=== PATIENT | male | born 1960 ===

== ENCOUNTER 2020-06-08 16:25 | Inpatient (IN) | payer OTHER ==
[~2020-06-08] VITALS: Ht 170.2 cm; Wt 128.1 kg
[2020-06-09] MEDS ORDERED: LACTULOSE SYRUP 10GM/15ML (ENULOSE) 30ML UDC PO PRN (11:30)
[2020-06-09] MEDS ORDERED: diphenhydrAMINE 25 MG TAB (BENADRYL) PO PRN (11:30)
[2020-06-09] MEDS ORDERED: LOPERAMIDE 2 MG (IMODIUM) TABLET PO PRN (11:30)
[2020-06-09] MEDS ORDERED: guaiFENesin/CODEINE (ROBITUSSIN AC) 10ML UDC PO PRN (11:30)
[2020-06-09] MEDS ORDERED: CALCIUM CARBONATE 500 MG (TUMS) TAB.CHEW PO PRN (11:30)
[2020-06-09] MEDS ORDERED: ALPRAZolam 0.25 MG (XANAX) TAB PO PRN (11:30)
[2020-06-09] MEDS ORDERED: ONDANSETRON 4 MG (ZOFRAN) ORAL DISSOLVE TAB PO PRN (11:30)
[2020-06-09] MEDS ORDERED: MELATONIN 3 MG TABLET PO PRN (11:30)
[2020-06-09] MEDS ORDERED: DOCUSATE SODIUM 100 MG (COLACE) CAP PO PRN (11:30)
[2020-06-09] MEDS ORDERED: BISACODYL 10 MG SUPP (DULCOLAX) PR PRN (11:30)
[2020-06-09] MEDS ORDERED: FLEET ENEMA ADULT 1 EA BTL PR PRN (11:30)
[2020-06-09] MEDS ORDERED: HYDROcodone/APAP 7.5 MG/325 MG (LORTAB, LORCET PLUS) TABLET PO PRN (11:45)
[2020-06-09] MEDS ORDERED: METHOCARBAMOL 500 MG (ROBAXIN) TABLET PO PRN (11:45)
[2020-06-09] MEDS: FENOFIBRATE 134 MG (LOFIBRA) CAPSULE PO SCH (18:50)
[2020-06-09] MEDS: meTOprolol TARTRATE 25 MG (LOPRESSOR) TABLET PO SCH (21:00)
[2020-06-09] MEDS: DOCUSATE SODIUM 100 MG (COLACE) CAP PO SCH (21:00)
[2020-06-09] MEDS: SENNA W/DOCUSATE (SENOKOT S) TABLET PO SCH (21:00)
[2020-06-09] MEDS: CELECOXIB 100 MG (CeleBREX) CAP PO SCH (21:00)
[2020-06-09] MEDS: polyethylene glycoL POWDER 17 GM (MIRALAX) PACK PO SCH (21:00)
[2020-06-10] MEDS: MULTIVIT W/MINERALS TAB (THERAGRAN M) PO SCH (07:00)
[2020-06-10] MEDS: metFORMIN 500 MG (GLUCOPHAGE) TAB PO SCH ×3 (07:00→18:21)
[2020-06-10] MEDS: ASPIRIN E.C. 81 MG (ECOTRIN) TAB PO SCH (07:00)
[2020-06-10] MEDS: PIOGLITAZONE 30MG (ACTOS) TAB PO SCH (07:00)
[2020-06-10] MEDS: SENNA W/DOCUSATE (SENOKOT S) TABLET PO SCH ×2 (09:00→20:47)
[2020-06-10] MEDS: CALCIUM CARBONATE 500 MG (TUMS) TAB.CHEW PO SCH (09:00)
[2020-06-10] MEDS: DOCUSATE SODIUM 100 MG (COLACE) CAP PO SCH ×2 (09:00→20:47)
[2020-06-10] MEDS: CELECOXIB 100 MG (CeleBREX) CAP PO SCH ×2 (09:00→20:48)
[2020-06-10] MEDS: polyethylene glycoL POWDER 17 GM (MIRALAX) PACK PO SCH ×2 (09:00→20:48)
[2020-06-10] MEDS ORDERED: lisINopril 20 MG (PRINIVIL) TABLET PO SCH (09:00)
[2020-06-10] MEDS: meTOprolol TARTRATE 25 MG (LOPRESSOR) TABLET PO SCH ×2 (09:00→20:48)
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
[2020-06-10 14:05] VITALS: BP 114/70
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
[2020-06-10 17:01] VITALS: BP 122/63
[2020-06-10] MEDS ORDERED: metFORMIN 500 MG (GLUCOPHAGE) TAB ONE (17:53)
[2020-06-10] MEDS: ENOXAPARIN 40 MG/0.4 ML (LOVENOX) SYR SC SCH (20:47)
[2020-06-10] MEDS: FENOFIBRATE 134 MG (LOFIBRA) CAPSULE PO SCH (20:48)
[2020-06-11 05:03] VITALS: BP 118/62
[2020-06-11 05:53] LABS: BASOPHILS # (AUTO) 0.1 10^3/uL (0.0-0.1); BASOPHILS % (AUTO) 1 % (0-10); EOSINOPHILS # (AUTO) 0.3 10^3/uL (0.0-0.3); EOSINOPHILS % (AUTO) 3 % (0-10); HEMATOCRIT 36 % (40-54); HEMOGLOBIN 11.4 G/DL (13.3-17.7); LYMPHOCYTES # (AUTO) 2.7 X 10^3 (1.0-4.0); LYMPHOCYTES % (AUTO) 27 % (12-44); MEAN CORPUSCULAR HEMOGLOBIN 24 PG (25-34); MEAN CORPUSCULAR HGB CONC 31 G/DL (32-36); MEAN CORPUSCULAR VOLUME 75 FL (80-99); MEAN PLATELET VOLUME 10.5 FL (7.4-10.4); MONOCYTES # (AUTO) 0.6 X 10^3 (0.0-1.0); MONOCYTES % (AUTO) 6 % (0-12); NEUTROPHILS # (AUTO) 6.4 X 10^3 (1.8-7.8); NEUTROPHILS % (AUTO) 64 % (42-75); PLATELET COUNT 441 10^3/uL (130-400); RED CELL DISTRIBUTION WIDTH 15.5 % (10.0-14.5); WHITE BLOOD COUNT 10.1 10^3/uL (4.3-11.0)
[2020-06-11] MEDS: MULTIVIT W/MINERALS TAB (THERAGRAN M) PO SCH (06:00)
[2020-06-11] MEDS: PANTOPRAZOLE 40 MG (PROTONIX) TAB PO SCH (06:00)
[2020-06-11] MEDS: PIOGLITAZONE 30MG (ACTOS) TAB PO SCH (06:00)
[2020-06-11] MEDS: metFORMIN 500 MG (GLUCOPHAGE) TAB PO SCH ×2 (06:00→18:12)
[2020-06-11 06:06] LABS: ALBUMIN 3.7 GM/DL (3.2-4.5)
[2020-06-11 06:07] LABS: CALCIUM 9.4 MG/DL (8.5-10.1)
[2020-06-11 06:09] LABS: TOTAL PROTEIN 7.5 GM/DL (6.4-8.2)
[2020-06-11 06:10] LABS: BILIRUBIN,TOTAL 0.4 MG/DL (0.1-1.0)
[2020-06-11 06:12] LABS: CREATININE SERUM 1.6 MG/DL (0.60-1.30)
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
[2020-06-11 06:40] LABS: ANISOCYTOSIS SLIGHT; ATYPICAL LYMPHOCYTES 1 %; EOSINOPHILS % (MANUAL) 2 %; HYPOCHROMASIA SLIGHT; LYMPHOCYTES % (MANUAL) 28 %; METAMYELOCYTES % 1 %; MONOCYTES % (MANUAL) 7 %; MYELOCYTES % 1 %; NEUTROPHILS % (MANUAL) 60 %; NUCLEATED RED BLOOD CELLS 1
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
--- NOTE | 2020-06-11 08:54 | Physical Therapy Evaluation ---
PT Evaluation-General Medical Diagnosis Admission Date Jun 10, 2020 at 13:45 Medical Diagnosis: cerivcal corpectomy and diskectomies Onset Date: May 26, 2020 Therapy Diagnosis Therapy Diagnosis: impaired mobility, endurance Precautions Precautions/Isolations: Fall Prevention, Standard Precautions Referral Physician: Cheryl Ibrahim DO Reason for Referral: Evaluation/Treatment Medical History Pertinent Medical History: Arthritis, DM, GERD, HTN Additional Medical History anxiety,hyperlipidemia, obesity Reviewed History: Yes Social History Home: Single Level Current Living Status: Spouse Entry Into Home: Stairs With Railing PT Steps Into Home: 5 Prior Prior Level of Function SCALE: Activities may be completed with or without assistive devices. 8-Stznbjvjag-mxgunab completes the activity by him/herself with no assistance from a helper. 5-Set-up or Clean-up Assistance-helper sets up or cleans up; patient completes activity. [place] assists only prior to or following the activity. 4-Supervision or Touching Assistance-helper provides verbal cues and/or touching/steadying and/or contact guard assistance as patient completes activity. Assistance may be provided throughout the activity or intermittently. 3-Partial/Moderate Assistance-helper does LESS THAN HALF the effort. [place] lifts, holds or supports trunk or limbs, but provides less than half the effort. 2-Substantial/Maximal Assistance-helper does MORE THAN HALF the effort. [place] lifts or holds trunk or limbs and provides more than half the effort. 0-Nkzeaosdm-zjxbam does ALL the effort. Patient does none of the effort to complete the activity. Or, the assistance of 2 or more helpers is required for the patient to complete the activity. If activity was not attempted, code reason: 7-Patient Refused. 9-Not Applicable-not attempted and the patient did not perform the activity bef ore the current illness, exacerbation or injury. 10-Not Attempted due to Environmental Limitations-(lack of equipment, weather r estraints, etc.). 88-Not Attempted due to Medical Conditions or Safety Concerns. Bed Mobility: 6 Transfers (B,C,W/C): 6 Gait: 6 Stairs: 6 Indoor Mobility (Ambulation): Independent Stairs: Independent PT Evaluation-Current Subjective Patient in bed pre tx, agrees to PT, states he just has a small headache. Pt/Family Goals to be independent at home Objective Patient Orientation: Person, Place, Situation cervical collar ROM/Strength ROM Lower Extremities WNL Strength Lower Extremities 5/5 gross BLE, except for hip flexion 4/5 Sensory Vision: Functional Hearing: Functional Sensation Right Lower Extremit: Intact Sensation Left Lower Extremity: Intact Transfers Roll Left to Right (QC): 6 Sit to Lying (QC): 6 Lying to Sitting/Side of Bed(Q: 6 Sit to Stand (QC): 5 Chair/Rjd-sl-Etubk Xfer(QC): 5 Toilet Transfer (QC): 5 Car Transfer (QC): 5 Patient performs bed mobility and supine <-> sit with independence, sit <-> stand SBA, transfers and car transfer SBA. Occasional cues for direction. Gait Does the Patient Walk?: Yes Mode of Locomotion: Walk Anticipated Mode of Locomotion: Walk Walk 10 feet (QC): 4 Walk 50 ft with 2 Turns(QC): 4 Walk 150 ft (QC): 4 Walking 10ft/uneven surface-QC: 4 Distance: 150'x2 Gait Assistive Device: None Comments/Gait Description Patient can ambulate 150' without an assistive device with SBA (including 50' with at least 2 turns of 90 degrees and 10' over an uneven surface). Patient ambulates slowly but steady, wide DANNIELLE Wheelchair Training Does the Pt Use a Wheelchair?: No Wheel 50 ft with 2 turns (QC): 9 Wheel 150 ft (QC): 9 Stairs #of Steps: 4 1 Step (curb) (QC): 4 4 Steps (QC): 4 12 Steps (QC): 88 Patient went up and down 4 steps using 2 handrails with SBA. Balance Sitting Static: Normal Sitting Dynamic: Normal Standing Static: Good Standing Dynamic: Good Picking up an Object (QC): 4 Treatment Parallel bars exercises x20 (heel raises, mini-squats), LAQ alternating with 2# ankle weights for 5 min, NuStep level 5 for 15 min. Assessment/Needs Patient has impaired mobility, strength, endurance. Gets a little SOB with activity. Steady ambulation without AD, may make him independent on the floor after seeing him this afternoon. Rehab Potential: Fair PT Short Term Goals Short Term Goals Time Frame: Jun 18, 2020 Roll Left & Right: 6 Sit to lyin Lying to sitting on side of be: 6 Sit to stand: 5 Chair/vhm-ld-pdomx transfer: 5 Walk 10 feet: 5 Walk 50 feet with two turns: 5 Walk 150 feet: 5 PT Rug Renovator Goals Rug Renovator Goals PT Custodial Goals Time Frame: Jul 02, 2020 Roll Left & Right (QC): 6 Sit to Lying (QC): 6 Lying-Sitting on Side/Bed(QC): 6 Sit to Stand (QC): 6 Chair/Meg-wp-Altca Xfer(QC): 6 Toilet Transfer (QC): 6 Car Transfer (QC): 6 Does the Patient Walk: Yes Walk 10 feet (QC): 6 Walk 50ft with 2 Turns (QC): 6 Walk 150 ft (QC): 6 Walking 10ft on Uneven Surface: 6 1 Step (curb) (QC): 6 4 Steps (QC): 6 12 Steps (QC): 6 Picking up an Object (QC): 6 Wheel 50 feet with 2 turns (QC: 9 Wheel 150 feet: 9 PT Plan Problem List Problem List: Activity Tolerance, Functional Strength, Safety, Balance, Gait, Transfer Treatment/Plan Treatment Plan: Continue Plan of Care Treatment Plan: Education, Functional Activity Azeem, Functional Strength, Group Therapy, Gait, Safety, Therapeutic Exercise, Transfers Treatment Duration: Jul 02, 2020 Frequency: At least 5 of 7 days/Wk (IRF) Estimated Hrs Per Day: 1.5 hours per day Patient and/or Family Agrees t: Yes Safety Risks/Education Patient Education: Gait Training, Transfer Techniques, Steps, Reviewed Precautions, Correct Positioning, Safety Issues Teaching Recipient: Patient Teaching Methods: Demonstration, Discussion Response to Teaching: Reinforcement Needed Discharge Recommendations Plan Patient will perform bed mobility and transfer training, balance and endurance training, functional strengthening, stair training, gait training, and education, to improve functional mobility and independence at home. Therapy Discharge Recommendati: Home & Family Time/GCodes Time In: 0800 Time Out: 0900 Total Billed Treatment Time: 60 Total Billed Treatment 1 visit EVL 30' EX 30' EVERARDO CHOI PT Jun 11, 2020 08:54
[2020-06-11] MEDS: polyethylene glycoL POWDER 17 GM (MIRALAX) PACK PO SCH ×2 (09:00→20:23)
[2020-06-11 09:30] VITALS: BP 128/72
[2020-06-11] MEDS: ASPIRIN E.C. 81 MG (ECOTRIN) TAB PO SCH (10:17)
[2020-06-11] MEDS: CALCIUM CARBONATE 500 MG (TUMS) TAB.CHEW PO SCH (10:18)
[2020-06-11] MEDS: ENOXAPARIN 40 MG/0.4 ML (LOVENOX) SYR SC SCH ×2 (10:18→21:09)
[2020-06-11] MEDS: meTOprolol TARTRATE 25 MG (LOPRESSOR) TABLET PO SCH ×2 (10:19→21:09)
[2020-06-11] MEDS: SENNA W/DOCUSATE (SENOKOT S) TABLET PO SCH ×2 (10:19→20:23)
[2020-06-11] MEDS: CELECOXIB 100 MG (CeleBREX) CAP PO SCH ×2 (10:19→21:08)
[2020-06-11] MEDS: DOCUSATE SODIUM 100 MG (COLACE) CAP PO SCH ×2 (10:19→21:09)
[2020-06-11] MEDS ORDERED: SIMV20TA26 PO (11:29)
[2020-06-11] MEDS ORDERED: LISI1TAB25 PO (11:29)
[2020-06-11] MEDS ORDERED: OMEP20CA18 PO (11:29)
[2020-06-11] MEDS ORDERED: CALC200T33 PO (11:29)
[2020-06-11] MEDS ORDERED: CELE-63 PO (11:29)
[2020-06-11] MEDS ORDERED: INSN1U SQ (11:29)
[2020-06-11] MEDS ORDERED: ASPI-983 PO (11:29)
[2020-06-11] MEDS ORDERED: METF-399 PO (11:29)
[2020-06-11] MEDS ORDERED: INSU100V31 IJ (11:29)
[2020-06-11] MEDS ORDERED: LORA-405 PO (11:29)
[2020-06-11] MEDS ORDERED: CITA40TA19 PO (11:29)
[2020-06-11] MEDS ORDERED: METO-333 PO (11:29)
[2020-06-11] MEDS ORDERED: CHOL10007 PO (11:30)
[2020-06-11] MEDS ORDERED: KRIL1CAP18 PO (11:30)
[2020-06-11] MEDS ORDERED: NFBIOT1000 PO (11:30)
--- NOTE | 2020-06-11 11:39 | NUR ---
MEDICATIONS HAD BEEN ENTERED AND CONTINUED OVER THE WEEKEND- THEREFORE I SPOKE WITH THE PATIENTS (LEO), SPOKE WITH THE PCP'S OFFICE AND NIK TO COMPLETE THE MED REC THE FOLLOWING ARE FILL DATES: 11-25-2019 LISINOPRIL HCTZ 20/12.5MG #180/90DS- I DID DOCUMENT THE PAST DUE FILL ON THE MED REC 01-28-2020 CELEXA 40MG #90/90DS 01-28-2020 SIMVASTATIN 20MG #90/90DS 03-02-2020 METFORMIN 1000MG #180/90DS 03-07-2020 LORAZEPAM 1MG #20/PRN 04-09-2020 METOPROLOL TART 25MG #180/90DS 05-14-2020 OMEPRAZOLE 20MG #30/30DS 05-17-2020 NOVOLIN N #3 05-23-2020 NOVOLIN R #1 THE HOME MED LIST FROM [facility] HAD MEDICATIONS TO CONTINUE THAT THE PATIENT HASNT TAKEN IN OVER A YEAR: ACTOS 45MG AND TRICOR 145MG - FOR THIS REASON I DID NOT LIST THEM ON THE MED REC [facility] ALSO HAD LISINOPRIL/HCTZ 20/25MG LISTED HOWEVER THE PT HAD BEEN TAKING THE 20/12.5MG DOSE OTC MEDS: ASPIRIN 81 TUMS BIOTIN KRILL OIL VIT D3
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
--- NOTE | 2020-06-11 13:21 | NUR ---
Dmitry, PT, states that pt can be up ad anupama now.
--- NOTE | 2020-06-11 13:29 | Physical Therapy Daily Note ---
PT Daily Note-Current Subjective Patient in room pre tx, agrees to PT, has no complaints of pain. Appearance Patient in room post tx, discussed with nursing, patient will now be independent on the floor Mental Status Patient Orientation: Person, Unable to Assess cervical collar Transfers SCALE: Activities may be completed with or without assistive devices. 7-Cvmfwgrrjf-vbbtcen completes the activity by him/herself with no assistance from a helper. 5-Set-up or Clean-up Assistance-helper sets up or cleans up; patient completes activity. [place] assists only prior to or following the activity. 4-Supervision or Touching Assistance-helper provides verbal cues and/or touching/steadying and/or contact guard assistance as patient completes activity. Assistance may be provided throughout the activity or intermittently. 3-Partial/Moderate Assistance-helper does LESS THAN HALF the effort. [place] lifts, holds or supports trunk or limbs, but provides less than half the effort. 2-Substantial/Maximal Assistance-helper does MORE THAN HALF the effort. [place] lifts or holds trunk or limbs and provides more than half the effort. 8-Etgpgikch-ecbmjb does ALL the effort. Patient does none of the effort to complete the activity. Or, the assistance of 2 or more helpers is required for the patient to complete the activity. If activity was not attempted, code reason: 7-Patient Refused. 9-Not Applicable-not attempted and the patient did not perform the activity before the current illness, exacerbation or injury. 10-Not Attempted due to Environmental Limitations-(lack of equipment, weather restraints, etc.). 88-Not Attempted due to Medical Conditions or Safety Concerns. Sit to Stand (QC): 6 Chair/Bna-wm-Znczk Xfer(QC): 6 Before coming out of room patient had to use the restroom and he did so without assist, independently. Gait Training Distance: 500' Walk 10 feet (QC): 6 Walk 50 ft with 2 Turns(QC): 6 Walk 150 ft (QC): 6 Gait Assistive Device: None slow but steady ambulation, wide DANNIELLE Stair Training Stair Training: Handrails/: 2 handrails #of Steps: 12 1 Step (curb) (QC): 4 4 Steps (QC): 4 12 Steps (QC): 4 Stairs: Pattern: Reciprocal SBA Treatments toileting, ambulation, stair training Assessment Current Status: Fair Progress Patient independent with ambulation PT Short Term Goals Short Term Goals Time Frame: Jun 18, 2020 Roll Left & Right: 6 Sit to lyin Lying to sitting on side of be: 6 Sit to stand: 5 Chair/iuu-po-snduu transfer: 5 Walk 10 feet: 5 Walk 50 feet with two turns: 5 Walk 150 feet: 5 PT Shelter Goals Shelter Goals PT Healthcare Translator Goals Time Frame: Jul 02, 2020 Roll Left & Right (QC): 6 Sit to Lying (QC): 6 Lying-Sitting on Side/Bed(QC): 6 Sit to Stand (QC): 6 Chair/Ale-ga-Zwpoh Xfer(QC): 6 Toilet Transfer (QC): 6 Car Transfer (QC): 6 Does the Patient Walk: Yes Walk 10 feet (QC): 6 Walk 50ft with 2 Turns (QC): 6 Walk 150 ft (QC): 6 Walking 10ft on Uneven Surface: 6 1 Step (curb) (QC): 6 4 Steps (QC): 6 12 Steps (QC): 6 Picking up an Object (QC): 6 Wheel 50 feet with 2 turns (QC: 9 Wheel 150 feet: 9 PT Plan Problem List Problem List: Activity Tolerance, Functional Strength, Safety, Balance, Gait, Transfer Treatment/Plan Treatment Plan: Continue Plan of Care Treatment Plan: Education, Functional Activity Azeem, Functional Strength, Group Therapy, Gait, Safety, Therapeutic Exercise, Transfers Treatment Duration: Jul 02, 2020 Frequency: At least 5 of 7 days/Wk (IRF) Estimated Hrs Per Day: 1.5 hours per day Patient and/or Family Agrees t: Yes Safety Risks/Education Patient Education: Gait Training, Transfer Techniques, Steps, Correct Positioning, Safety Issues Teaching Recipient: Patient Teaching Methods: Demonstration, Discussion Response to Teaching: Reinforcement Needed Time/GCodes Time In: 1300 Time Out: 1330 Total Billed Treatment Time: 30 Total Billed Treatment 1 visit FA 10' GT 20' EVERARDO CHOI PT Jun 11, 2020 13:29
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
[2020-06-11] MEDS ORDERED: inSUlin (REGULAR) HUMAN 1 UNIT/0.01 ML (CHARGE PER UNIT) SC SCH (18:00)
[2020-06-11] MEDS: inSUlin (REGULAR) HUMAN 1 UNIT/0.01 ML (CHARGE PER UNIT) SC SCH (18:38)
[2020-06-11] MEDS: inSUlin NPH (NovoLIN N) 1 UNIT/0.01 ML (CHARGE PER UNIT) SQ SCH (18:39)
[2020-06-11 18:59] VITALS: BP 115/57
[2020-06-11] MEDS ORDERED: inSUlin (REGULAR) HUMAN 1 UNIT/0.01 ML (CHARGE PER UNIT) IJ SCH (21:00)
[2020-06-11] MEDS: FENOFIBRATE 134 MG (LOFIBRA) CAPSULE PO SCH (21:08)
[2020-06-12 06:00] VITALS: BP 113/66
[2020-06-12] MEDS: PANTOPRAZOLE 40 MG (PROTONIX) TAB PO SCH (06:31)
[2020-06-12] MEDS: PIOGLITAZONE 30MG (ACTOS) TAB PO SCH (06:31)
[2020-06-12] MEDS: metFORMIN 500 MG (GLUCOPHAGE) TAB PO SCH ×2 (06:31→17:50)
[2020-06-12] MEDS: MULTIVIT W/MINERALS TAB (THERAGRAN M) PO SCH (06:31)
[2020-06-12] MEDS: inSUlin (REGULAR) HUMAN 1 UNIT/0.01 ML (CHARGE PER UNIT) SC SCH ×2 (08:12→18:03)
[2020-06-12] MEDS: inSUlin NPH (NovoLIN N) 1 UNIT/0.01 ML (CHARGE PER UNIT) SQ SCH ×2 (08:13→18:03)
[2020-06-12] MEDS: ENOXAPARIN 40 MG/0.4 ML (LOVENOX) SYR SC SCH ×2 (08:14→20:53)
[2020-06-12] MEDS: CELECOXIB 100 MG (CeleBREX) CAP PO SCH ×2 (08:14→20:52)
[2020-06-12] MEDS: ASPIRIN E.C. 81 MG (ECOTRIN) TAB PO SCH (08:14)
[2020-06-12] MEDS: CALCIUM CARBONATE 500 MG (TUMS) TAB.CHEW PO SCH (08:14)
[2020-06-12] MEDS: DOCUSATE SODIUM 100 MG (COLACE) CAP PO SCH ×2 (08:14→20:59)
[2020-06-12] MEDS: polyethylene glycoL POWDER 17 GM (MIRALAX) PACK PO SCH ×2 (08:15→20:59)
[2020-06-12] MEDS: SENNA W/DOCUSATE (SENOKOT S) TABLET PO SCH ×2 (08:15→21:00)
[2020-06-12] MEDS: meTOprolol TARTRATE 25 MG (LOPRESSOR) TABLET PO SCH ×2 (08:23→20:53)
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
--- NOTE | 2020-06-12 11:44 | Physical Therapy Daily Note ---
PT Daily Note-Current Subjective Patient in bed pre tx, agrees to PT, has no complaints of pain. Appearance Patient in room post tx, has been independent with ambulation with no known difficulties. Mental Status Patient Orientation: Person, Place, Situation cervical collar Transfers SCALE: Activities may be completed with or without assistive devices. 2-Rwebdeerzk-hmqyblr completes the activity by him/herself with no assistance from a helper. 5-Set-up or Clean-up Assistance-helper sets up or cleans up; patient completes activity. [place] assists only prior to or following the activity. 4-Supervision or Touching Assistance-helper provides verbal cues and/or touching/steadying and/or contact guard assistance as patient completes activity. Assistance may be provided throughout the activity or intermittently. 3-Partial/Moderate Assistance-helper does LESS THAN HALF the effort. [place] lifts, holds or supports trunk or limbs, but provides less than half the effort. 2-Substantial/Maximal Assistance-helper does MORE THAN HALF the effort. [place] lifts or holds trunk or limbs and provides more than half the effort. 7-Swpdfsvfa-hyrble does ALL the effort. Patient does none of the effort to complete the activity. Or, the assistance of 2 or more helpers is required for the patient to complete the activity. If activity was not attempted, code reason: 7-Patient Refused. 9-Not Applicable-not attempted and the patient did not perform the activity before the current illness, exacerbation or injury. 10-Not Attempted due to Environmental Limitations-(lack of equipment, weather restraints, etc.). 88-Not Attempted due to Medical Conditions or Safety Concerns. Roll Left & Right (QC): 6 Sit to Lying (QC): 6 Lying to Sitting/Side of Bed(Q: 6 Sit to Stand (QC): 6 Chair/Rcv-ou-Zdlqs Xfer(QC): 6 Toilet Transfer (QC): 6 Car Transfer (QC): 6 independent with transfers and bed mobility Gait Training Distance: 600' Walk 10 feet (QC): 6 Walk 50 ft with 2 Turns(QC): 6 Walk 150 ft (QC): 6 Walking 10ft/uneven surface-QC: 6 Gait Assistive Device: None Patient can ambulate 600' without an assistive device with independence (including 50' with at least 2 turns of 90 degrees and 10' over an uneven surface). Patient ambulates slow but steady, wide DANNIELLE Wheelchair Training Does the Pt Use a Wheelchair?: No Wheel 50 ft with 2 turns (QC): 9 Wheel 150 ft (QC): 9 Stair Training Stair Training: Handrails/: 2 handrails #of Steps: 12 1 Step (curb) (QC): 6 4 Steps (QC): 6 12 Steps (QC): 6 Stairs: Pattern: Reciprocal Balance Picking up an Object (QC): 6 Exercises LAQ alternating for 5 min with 2# ankle weights NuStep Minutes: 20 NuStep Workload: 5 Treatments bed mobility and transfers, ambulation, stair training, functional strengthening Assessment Current Status: Fair Progress independent with mobility, needs occasional rest break PT Short Term Goals Short Term Goals Time Frame: Jun 18, 2020 Roll Left & Right: 6 Sit to lyin Lying to sitting on side of be: 6 Sit to stand: 5 Chair/dcm-ob-fafdr transfer: 5 Walk 10 feet: 5 Walk 50 feet with two turns: 5 Walk 150 feet: 5 PT Residential Goals Tube [place]inder Hand Goals PT Residential Goals Time Frame: Jul 02, 2020 Roll Left & Right (QC): 6 Sit to Lying (QC): 6 Lying-Sitting on Side/Bed(QC): 6 Sit to Stand (QC): 6 Chair/Tln-rk-Sztjf Xfer(QC): 6 Toilet Transfer (QC): 6 Car Transfer (QC): 6 Does the Patient Walk: Yes Walk 10 feet (QC): 6 Walk 50ft with 2 Turns (QC): 6 Walk 150 ft (QC): 6 Walking 10ft on Uneven Surface: 6 1 Step (curb) (QC): 6 4 Steps (QC): 6 12 Steps (QC): 6 Picking up an Object (QC): 6 Wheel 50 feet with 2 turns (QC: 9 Wheel 150 feet: 9 PT Plan Problem List Problem List: Activity Tolerance, Functional Strength, Safety, Balance, Gait, Transfer Treatment/Plan Treatment Plan: Continue Plan of Care Treatment Plan: Education, Functional Activity Azeem, Functional Strength, Group Therapy, Gait, Safety, Therapeutic Exercise, Transfers Treatment Duration: Jul 02, 2020 Frequency: At least 5 of 7 days/Wk (IRF) Estimated Hrs Per Day: 1.5 hours per day Patient and/or Family Agrees t: Yes Safety Risks/Education Patient Education: Gait Training, Transfer Techniques, Steps, Reviewed Precautions, Correct Positioning, Safety Issues Teaching Recipient: Patient Teaching Methods: Demonstration, Discussion Response to Teaching: Reinforcement Needed Time/GCodes Time In: 1000 Time Out: 1100 Total Billed Treatment Time: 60 Total Billed Treatment 1 visit EX 25' FA 35' EVERARDO CHOI PT Jun 12, 2020 11:44
--- NOTE | 2020-06-12 11:49 | Occupational Ther Daily Note ---
OT Current Status-Daily Note Subjective Pt in bed asleep when OT entered room. Pt agreed to therapy after awaking and reported that he is feeling no pain. Mental Status/Objective Patient Orientation: Person, Place, Time, Situation ADL-Treatment Therapy Code Descriptions/Definitions Functional [place] Measure: 0=Not Assessed/NA 4=Minimal Assistance 1=Total Assistance 5=Supervision or Setup 2=Maximal Assistance 6=Modified [place] 3=Moderate Assistance 7=Complete IndependenceSCALE: Activities may be completed with or without assistive devices. 2-Qpvjpxoxaj-bmfirfl completes the activity by him/herself with no assistance from a helper. 5-Set-up or Clean-up Assistance-helper sets up or cleans up; patient completes activity. [place] assists only prior to or following the activity. 4-Supervision or Touching Assistance-helper provides verbal cues and/or touching/steadying and/or contact guard assistance as patient completes activity. Assistance may be provided throughout the activity or intermittently. 3-Partial/Moderate Assistance-helper does LESS THAN HALF the effort. [place] lifts, holds or supports trunk or limbs, but provides less than half the effort. 2-Substantial/Maximal Assistance-helper does MORE THAN HALF the effort. [place] lifts or holds trunk or limbs and provides more than half the effort. 1-Bciyprdmz-zxuwyr does ALL the effort. Patient does none of the effort to complete the activity. Or, the assistance of 2 or more helpers is required for the patient to complete the activity. If activity was not attempted, code reason: 7-Patient Refused. 9-Not Applicable-not attempted and the patient did not perform the activity before the current illness, exacerbation or injury. 10-Not Attempted due to Environmental Limitations-(lack of equipment, weather restraints, etc.). 88-Not Attempted due to Medical Conditions or Safety Concerns. Eating (QC): 6 (Per pt report) Oral Hygiene (QC): 6 Shower/Bathe Self (QC): 5 (Set up) Upper Body Dressing (QC): 3 (Mod A with donning neck brace) Lower Body Dressing (QC): 6 On/Off Footwear: 6 Toileting Hygiene (QC): 6 Toilet Transfer (QC): 6 Pt. excited to take a shower when provided with an additional cervical collar that could get wet. Pt. ambulated to bathroom, toileted, and completed toilet hygiene independently. Pt. doffed/donned neck brace with mod A due to decreased fine motor and cues for completing task independently. He doffed his shirt, pants, and slipper socks independently. Pt. required set up/clean up assistance for bathing while seated on shower bench. After the shower, pt. donned hospital gown and slipper socks independently. Pt. ambulated to bathroom sink to brush teeth and comb hair independently. Pt. then made his bed in room by taking off old sheets and putting on fresh ones. Pt. collected dirty clothing, ambulated to laundry room, and started laundry with SBA for laundry task only. Pt. walked to therapy gym independently without walker. Once in gym, pt completed 15 minute arm bike activity at minimal resistance to increase BUE ROM and functional activity tolerance. Pt. required one rest break. Pt. tolerated 12 minutes of fine motor activity of placing pegs into board working on in hand manipulation, pincer grasp, and finger strength. Pt. then walked back to room. Once in his room, pt stood in front of bathroom mirror to practice unfastening and refastening velcro straps on cervical collar independently 5 times. Pt. returned to bed with call light and phone within reach when OT left room. All needs met. Education OT Patient Education: Correct positioning, Disease process, Energy conservation, Instructions don/doff splint/brace, Modified ADL techniques, Progress toward Goal/Update tx plan, Purpose of tx/functional activities, Reviewed precautions, Rehab process, Transfer techniques Teaching Recipient: Patient Teaching Methods: Demonstration, Discussion Response to Teaching: Verbalize Understanding, Return Demonstration OT Department Administrator Goals Department Administrator Goals Time Frame: Jun 18, 2020 Eating (QC): 6 Oral Hygiene (QC): 6 Toileting Hygiene (QC): 6 Shower/Bathe Self (QC): 6 Upper Body Dressing (QC): 6 Lower Body Dressing (QC): 6 On/Off Footwear (QC): 6 Additional Goals: 1-Demonstrate ADL Tasks, 2-Verbalize Understanding, 3- ImproveStrength/Azeem 1=Demonstrate adherence to instructed precautions during ADL tasks. 2=Patient will verbalize/demonstrate understanding of assistive devices/modifications for ADL. 3=Patient will improve strength/tolerance for activity to enable patient to perform ADL's. OT Education/Plan Problem List/Assessment Assessment: Decreased Activ Tolerance, Restricted Funct UE ROM Discharge Recommendations Plan/Recommendations: Continue POC Therapy Discharge Recommendati: Home & Family Treatment Plan/Plan of Care Treatment,Training & Education: Yes Patient would benefit from OT for education, treatment and training to promote independence in ADL's, mobility, safety and/or upper extremity function for ADL's. Plan of Care: ADL Retraining, Functional Mobility, UE Funct Exercise/Act Treatment Duration: Jun 18, 2020 Frequency: At least 5 of 7 days/Wk (IRF) Estimated Hrs Per Day: 1.5 hours per day Agreement: Yes Rehab Potential: Good Time/GCodes Start Time: 08:30 Stop Time: 10:00 Total Time Billed (hr/min): 90 Billed Treatment Time 1, ADL 4 (60 minutes), EX (15 minutes), FA (15 minutes) DAVID MANRIQUE OT Jun 12, 2020 11:49
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
--- NOTE | 2020-06-12 13:29 | Physical Therapy Daily Note ---
PT Daily Note-Current Subjective Patient in bed pre tx, agrees to PT, no complaints of pain. Appearance Patient in room post tx, he is independent with mobility Mental Status Patient Orientation: Person, Place, Situation cervical collar Transfers SCALE: Activities may be completed with or without assistive devices. 4-Weecsagshj-pnzvndz completes the activity by him/herself with no assistance from a helper. 5-Set-up or Clean-up Assistance-helper sets up or cleans up; patient completes activity. [place] assists only prior to or following the activity. 4-Supervision or Touching Assistance-helper provides verbal cues and/or touching/steadying and/or contact guard assistance as patient completes activity. Assistance may be provided throughout the activity or intermittently. 3-Partial/Moderate Assistance-helper does LESS THAN HALF the effort. [place] lifts, holds or supports trunk or limbs, but provides less than half the effort. 2-Substantial/Maximal Assistance-helper does MORE THAN HALF the effort. [place] l ifts or holds trunk or limbs and provides more than half the effort. 3-Xvdfgqnmf-acevkh does ALL the effort. Patient does none of the effort to complete the activity. Or, the assistance of 2 or more helpers is required for the patient to complete the activity. If activity was not attempted, code reason: 7-Patient Refused. 9-Not Applicable-not attempted and the patient did not perform the activity before the current illness, exacerbation or injury. 10-Not Attempted due to Environmental Limitations-(lack of equipment, weather restraints, etc.). 88-Not Attempted due to Medical Conditions or Safety Concerns. Roll Left & Right (QC): 6 Lying to Sitting/Side of Bed(Q: 6 Sit to Stand (QC): 6 Chair/Yqk-tm-Ejphv Xfer(QC): 6 Gait Training Distance: 600' Walk 10 feet (QC): 6 Walk 50 ft with 2 Turns(QC): 6 Walk 150 ft (QC): 6 Gait Assistive Device: None Exercises NuStep Minutes: 15 NuStep Workload: 5 Treatments transfers, ,ambulation, functional strengthening Assessment Current Status: Fair Progress independent with mobility PT Short Term Goals Short Term Goals Time Frame: Jun 18, 2020 Roll Left & Right: 6 Sit to lyin Lying to sitting on side of be: 6 Sit to stand: 5 Chair/pzh-ff-gdxar transfer: 5 Walk 10 feet: 5 Walk 50 feet with two turns: 5 Walk 150 feet: 5 PT [place] Goals [facility] Goals PT [place] Goals Time Frame: Jul 02, 2020 Roll Left & Right (QC): 6 Sit to Lying (QC): 6 Lying-Sitting on Side/Bed(QC): 6 Sit to Stand (QC): 6 Chair/Hwp-sb-Djujp Xfer(QC): 6 Toilet Transfer (QC): 6 Car Transfer (QC): 6 Does the Patient Walk: Yes Walk 10 feet (QC): 6 Walk 50ft with 2 Turns (QC): 6 Walk 150 ft (QC): 6 Walking 10ft on Uneven Surface: 6 1 Step (curb) (QC): 6 4 Steps (QC): 6 12 Steps (QC): 6 Picking up an Object (QC): 6 Wheel 50 feet with 2 turns (QC: 9 Wheel 150 feet: 9 PT Plan Problem List Problem List: Activity Tolerance, Functional Strength, Safety, Balance, Gait, Transfer Treatment/Plan Treatment Plan: Continue Plan of Care Treatment Plan: Education, Functional Activity Azeem, Functional Strength, Group Therapy, Gait, Safety, Therapeutic Exercise, Transfers Treatment Duration: Jul 02, 2020 Frequency: At least 5 of 7 days/Wk (IRF) Estimated Hrs Per Day: 1.5 hours per day Patient and/or Family Agrees t: Yes Safety Risks/Education Patient Education: Gait Training, Transfer Techniques, Correct Positioning, Safety Issues Teaching Recipient: Patient Teaching Methods: Demonstration, Discussion Response to Teaching: Reinforcement Needed Time/GCodes Time In: 1300 Time Out: 1330 Total Billed Treatment Time: 30 Total Billed Treatment 1 visit GT 15' EX 15' EVERARDO CHOI PT Jun 12, 2020 13:29
[2020-06-12 18:16] VITALS: BP 113/83
[2020-06-12] MEDS: FENOFIBRATE 134 MG (LOFIBRA) CAPSULE PO SCH (20:53)
[2020-06-13 06:00] VITALS: BP 127/60
[2020-06-13] MEDS: PANTOPRAZOLE 40 MG (PROTONIX) TAB PO SCH (06:50)
[2020-06-13] MEDS: PIOGLITAZONE 30MG (ACTOS) TAB PO SCH (06:50)
[2020-06-13] MEDS: MULTIVIT W/MINERALS TAB (THERAGRAN M) PO SCH (06:50)
[2020-06-13] MEDS: metFORMIN 500 MG (GLUCOPHAGE) TAB PO SCH ×2 (06:50→18:15)
[2020-06-13] MEDS: inSUlin (REGULAR) HUMAN 1 UNIT/0.01 ML (CHARGE PER UNIT) SC SCH ×2 (08:22→18:16)
[2020-06-13] MEDS: inSUlin NPH (NovoLIN N) 1 UNIT/0.01 ML (CHARGE PER UNIT) SQ SCH ×2 (08:22→18:16)
[2020-06-13] MEDS: ASPIRIN E.C. 81 MG (ECOTRIN) TAB PO SCH (08:23)
[2020-06-13] MEDS: ENOXAPARIN 40 MG/0.4 ML (LOVENOX) SYR SC SCH ×2 (08:23→20:17)
[2020-06-13] MEDS: CALCIUM CARBONATE 500 MG (TUMS) TAB.CHEW PO SCH (08:23)
[2020-06-13] MEDS: CELECOXIB 100 MG (CeleBREX) CAP PO SCH ×2 (08:23→20:16)
[2020-06-13] MEDS: meTOprolol TARTRATE 25 MG (LOPRESSOR) TABLET PO SCH ×2 (08:24→20:16)
[2020-06-13] MEDS: SENNA W/DOCUSATE (SENOKOT S) TABLET PO SCH ×2 (08:25→20:22)
[2020-06-13] MEDS: DOCUSATE SODIUM 100 MG (COLACE) CAP PO SCH ×2 (08:25→20:22)
[2020-06-13] MEDS: polyethylene glycoL POWDER 17 GM (MIRALAX) PACK PO SCH ×2 (08:25→20:22)
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
--- NOTE | 2020-06-13 10:17 | Therapy Team Discharge Summary ---
Therapy Discharge Summary Discharge Recommendations Date of Discharge Physical Therapy Patient came to rehab with cerivcal corpectomy and diskectomies. Upon evaluation patient performed bed mobility and supine <-> sit with independence, sit <-> stand SBA, transfers and car transfer SBA, ambulated 150' without an as sistive device with SBA (including 50' with at least 2 turns of 90 degrees and 10' over an uneven surface), went up and down 4 steps using 2 handrails with SBA, and picked up an object from the floor with SBA. Patient has been performing bed mobility and transfer training, balance and endurance training, functional strengthening, stair training, gait training, and education. 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 Now, patient is independent with transfers, bed mobility and car transfer, ambulates 600' without an assistive device with independence (including 50' with at least 2 turns of 90 degrees and 10' over an uneven surface), can sweet pickle maker an object from the floor with independence, and can go up and down 12 steps using 2 handrails with independence. Patient is discharging from this facility today and will be discharged from PT at this time. Occupational Therapy Decreased Activ Tolerance, Restricted Funct UE ROM PT Electronics Parts Sales Representative Goals Electronics Parts Sales Representative Goals PT Electronics Parts Sales Representative Goals Time Frame: Jul 02, 2020 Roll Left to Right (QC): 6 Sit to Lying (QC): 6 Lying-Sitting on Side/Bed(QC): 6 Sit to Stand (QC): 6 Chair/Zpm-ea-Dclmr Xfer(QC): 6 Car Transfer (QC): 6 Does the Patient Walk: Yes Walk 10 feet (QC): 6 Walk 10ft-Uneven Surface(QC): 6 Walk 50ft with 2 Turns (QC): 6 Walk 150 ft (QC): 6 Wheel 50 feet with 2 turns (QC: 9 1 Step (curb) (QC): 6 4 Steps (QC): 6 12 Steps (QC): 6 Picking up an Object (QC): 6 OT Care Home Goals Electronics Parts Sales Representative Goals Time Frame: Jun 18, 2020 Eating (QC): 6 Oral Hygiene (QC): 6 Shower/Bathe Self (QC): 6 Upper Body Dressing (QC): 6 Lower Body Dressing (QC): 6 On/Off Footwear (QC): 6 Toileting Hygiene (QC): 6 Toilet/Commode Transfer (QC): 6 Additional Goals: 1-Demonstrate ADL Tasks, 2-Verbalize Understanding, 3- ImproveStrength/Azeem 1=Demonstrate adherence to instructed precautions during ADL tasks. 2=Patient will verbalize/demonstrate understanding of assistive devices/modifications for ADL. 3=Patient will improve strength/tolerance for activity to enable patient to perform ADL's. EVERARDO CHOI PT Jun 13, 2020 10:17
--- NOTE | 2020-06-13 10:34 | Occupational Ther Daily Note ---
OT Current Status-Daily Note Subjective Pt. seated EOB when OT entered room. Nursing finishing up administering am meds. Pt. stated he is having no pain and ready for therapy. Mental Status/Objective Patient Orientation: Person, Place, Time ADL-Treatment Therapy Code Descriptions/Definitions Functional [place] Measure: 0=Not Assessed/NA 4=Minimal Assistance 1=Total Assistance 5=Supervision or Setup 2=Maximal Assistance 6=Modified [place] 3=Moderate Assistance 7=Complete IndependenceSCALE: Activities may be completed with or without assistive devices. 9-Kcqxscltpr-bnjtgic completes the activity by him/herself with no assistance from a helper. 5-Set-up or Clean-up Assistance-helper sets up or cleans up; patient completes activity. [place] assists only prior to or following the activity. 4-Supervision or Touching Assistance-helper provides verbal cues and/or touching/steadying and/or contact guard assistance as patient completes activity. Assistance may be provided throughout the activity or intermittently. 3-Partial/Moderate Assistance-helper does LESS THAN HALF the effort. [place] lifts, holds or supports trunk or limbs, but provides less than half the effort. 2-Substantial/Maximal Assistance-helper does MORE THAN HALF the effort. [place] lifts or holds trunk or limbs and provides more than half the effort. 7-Nypzhnyof-ibhedz does ALL the effort. Patient does none of the effort to complete the activity. Or, the assistance of 2 or more helpers is required for the patient to complete the activity. If activity was not attempted, code reason: 7-Patient Refused. 9-Not Applicable-not attempted and the patient did not perform the activity before the current illness, exacerbation or injury. 10-Not Attempted due to Environmental Limitations-(lack of equipment, weather restraints, etc.). 88-Not Attempted due to Medical Conditions or Safety Concerns. Upper Body Dressing (QC): 6 (Pt. independent in doffing and donning cervical c ollar.) Toileting Hygiene (QC): 6 Toilet Transfer (QC): 6 Pt. declined showering or cleaning up. He did not have any clean clothing to change into, but stated that his sister should bring him some. Pt. ambulated to bathroom sink to practicing doffing and donning cervical collar. Pt. stated that he could not grab the velcro straps and requested that OT complete activity. Pt. ambulated to gym without walker. Once in the gym, he participated in 15 minutes using the arm byron without any breaks to increase BUE ROM and endurance for functional tasks. He then completed a heavy pinch activity to increase pinch strength in bilateral hands for 13 minutes with one rest break. Pt. completed 15 minutes of fine motor activity beading various sizes of beads on a string to work on finger dexterity, in hand manipulation, and hand eye coordination. The last 5 minutes of this activity was upgraded by having the pt. pull the pony beads from orange theraputty prior to stringing them. It is noted that pt. was able to string beads with minimal difficulty grasping small string with right thumb and index finger. Based on this observation, the OT modified the velcro on the cervical collar by adding a loop of shoe string to the velcro strap on the right side for the pt. to grasp while doffing and donning brace. Pt. educated on how to use the modified velcro strap and was asked to doff/don brace with modification. Pt. demonstrated independence with task and reported that it is "much better". Pt. ambulated back to room without walker. He independently used the restroom and completed toilet hygiene. Pt. declined changing his slipper socks. entered room and was educated on modification to cervical collar. OT asked pt. and about any concerns with daily tasks after discharge. Pt. stated that he is "all good". His stated that her only concern is that he is able to don his socks independently as she is unable to do so at this time. Pt. and stated that they both understood that he is independent with this task. Pt. in bed with in room when OT left. All needs met. Education OT Patient Education: Correct positioning, Energy conservation, Instructions don/doff splint/brace, Instructions to caregiver, Modified ADL techniques, Progress toward Goal/Update tx plan, Purpose of tx/functional activities, Reviewed precautions, Rehab process, Transfer techniques Teaching Recipient: Patient, Family, Significant Other Teaching Methods: Demonstration, Discussion Response to Teaching: Verbalize Understanding, Return Demonstration OT Custodial Goals Cd Reactor Operator Goals Time Frame: Jun 18, 2020 Eating (QC): 6 Oral Hygiene (QC): 6 Toileting Hygiene (QC): 6 Shower/Bathe Self (QC): 6 Upper Body Dressing (QC): 6 Lower Body Dressing (QC): 6 On/Off Footwear (QC): 6 Additional Goals: 1-Demonstrate ADL Tasks, 2-Verbalize Understanding, 3- ImproveStrength/Azeem 1=Demonstrate adherence to instructed precautions during ADL tasks. 2=Patient will verbalize/demonstrate understanding of assistive devices/modifications for ADL. 3=Patient will improve strength/tolerance for activity to enable patient to perform ADL's. OT Education/Plan Problem List/Assessment Assessment: Decreased Activ Tolerance, Decreased UE Strength Discharge Recommendations Plan/Recommendations: Continue POC Therapy Discharge Recommendati: Home & Family Treatment Plan/Plan of Care Treatment,Training & Education: Yes Patient would benefit from OT for education, treatment and training to promote independence in ADL's, mobility, safety and/or upper extremity function for ADL's. Plan of Care: ADL Retraining, Functional Mobility, UE Funct Exercise/Act Treatment Duration: Jun 18, 2020 Frequency: At least 5 of 7 days/Wk (IRF) Estimated Hrs Per Day: 1.5 hours per day Agreement: Yes Rehab Potential: Good Time/GCodes Start Time: 08:30 Stop Time: 09:30 Total Time Billed (hr/min): 60 Billed Treatment Time 1, EX (15 minutes), FA 2 (30 minutes), ADL (15 minutes) DAVID MANRIQUE OT Jun 13, 2020 10:34
--- NOTE | 2020-06-13 11:43 | Occupational Ther Daily Note ---
OT Current Status-Daily Note Subjective Pt. in bed with in room when OT entered. Pt. reported that he is not experiencing any pain. Mental Status/Objective Patient Orientation: Person, Place, Time ADL-Treatment Therapy Code Descriptions/Definitions Functional [place] Measure: 0=Not Assessed/NA 4=Minimal Assistance 1=Total Assistance 5=Supervision or Setup 2=Maximal Assistance 6=Modified [place] 3=Moderate Assistance 7=Complete IndependenceSCALE: Activities may be completed with or without assistive devices. 6-Ivcldfjmbk-nfjjrxc completes the activity by him/herself with no assistance from a helper. 5-Set-up or Clean-up Assistance-helper sets up or cleans up; patient completes activity. [place] assists only prior to or following the activity. 4-Supervision or Touching Assistance-helper provides verbal cues and/or t ouching/steadying and/or contact guard assistance as patient completes activity. Assistance may be provided throughout the activity or intermittently. 3-Partial/Moderate Assistance-helper does LESS THAN HALF the effort. [place] lifts, holds or supports trunk or limbs, but provides less than half the effort. 2-Substantial/Maximal Assistance-helper does MORE THAN HALF the effort. [place] lifts or holds trunk or limbs and provides more than half the effort. 8-Eugidphrq-elexax does ALL the effort. Patient does none of the effort to complete the activity. Or, the assistance of 2 or more helpers is required for the patient to complete the activity. If activity was not attempted, code reason: 7-Patient Refused. 9-Not Applicable-not attempted and the patient did not perform the activity before the current illness, exacerbation or injury. 10-Not Attempted due to Environmental Limitations-(lack of equipment, weather restraints, etc.). 88-Not Attempted due to Medical Conditions or Safety Concerns. Upper Body Dressing (QC): 6 (Pt. independent with donning and doffing cervical collar.) On/Off Footwear: 6 Other Treatment Pt. in bed when OT entered room. Pt. demonstrated his ability to independently doff/don slipper socks and cervical collar while in the room. Pt. walked to gym independently without walker. He tolerated 17 minutes of standing while completing functional table top activities without a rest break. The table top activities focused on fine motor skills including finger dexterity, hand eye coordination, and sample carrier strength. Pt. walked for 7 minutes with one rest break prior to returning to his room. Once in his room, pt. returned back to bed. His was still in the room and he had his call light and phone within reach. All needs met Education OT Patient Education: Correct positioning, Disease process, Energy conservation, Instructions don/doff splint/brace, Instructions to caregiver, Modified ADL techniques, Progress toward Goal/Update tx plan, Purpose of tx/functional activities, Reviewed precautions, Rehab process Teaching Recipient: Patient, Family Teaching Methods: Demonstration, Discussion Response to Teaching: Verbalize Understanding, Return Demonstration OT Mechanical Drawing Teacher Goals Senior Living Goals Time Frame: Jun 18, 2020 Eating (QC): 6 Oral Hygiene (QC): 6 Toileting Hygiene (QC): 6 Shower/Bathe Self (QC): 6 Upper Body Dressing (QC): 6 Lower Body Dressing (QC): 6 On/Off Footwear (QC): 6 Additional Goals: 1-Demonstrate ADL Tasks, 2-Verbalize Understanding, 3- ImproveStrength/Azeem 1=Demonstrate adherence to instructed precautions during ADL tasks. 2=Patient will verbalize/demonstrate understanding of assistive devices/modifica tions for ADL. 3=Patient will improve strength/tolerance for activity to enable patient to perform ADL's. OT Education/Plan Problem List/Assessment Assessment: Decreased Activ Tolerance, Decreased UE Strength Discharge Recommendations Plan/Recommendations: Continue POC Therapy Discharge Recommendati: Home & Family Treatment Plan/Plan of Care Treatment,Training & Education: Yes Patient would benefit from OT for education, treatment and training to promote independence in ADL's, mobility, safety and/or upper extremity function for ADL's. Plan of Care: ADL Retraining, Functional Mobility, UE Funct Exercise/Act Treatment Duration: Jun 18, 2020 Frequency: At least 5 of 7 days/Wk (IRF) Estimated Hrs Per Day: 1.5 hours per day Agreement: Yes Rehab Potential: Good Time/GCodes Start Time: 11:00 Stop Time: 11:30 Total Time Billed (hr/min): 30 Billed Treatment Time 1, FA 2(30 minutes) DAVID MANRIQUE OT Jun 13, 2020 11:43
--- NOTE | 2020-06-13 12:35 | Physical Therapy Daily Note ---
PT Daily Note-Current Subjective Pt laying in bed upon arrival. Pt saying goodbye to Sp as Sp is DC shortly. Pt agrees to PT. Pain Location: No Pain Reported Mental Status Patient Orientation: Person, Place, Situation Attachments: Other-See Comments (Cervical Collar) Transfers SCALE: Activities may be completed with or without assistive devices. 4-Hoyhoxchqw-dpyolgi completes the activity by him/herself with no assistance from a helper. 5-Set-up or Clean-up Assistance-helper sets up or cleans up; patient completes activity. [place] assists only prior to or following the activity. 4-Supervision or Touching Assistance-helper provides verbal cues and/or touching/steadying and/or contact guard assistance as patient completes activity. Assistance may be provided throughout the activity or intermittently. 3-Partial/Moderate Assistance-helper does LESS THAN HALF the effort. [place] lifts, holds or supports trunk or limbs, but provides less than half the effort. 2-Substantial/Maximal Assistance-helper does MORE THAN HALF the effort. [place] lifts or holds trunk or limbs and provides more than half the effort. 9-Rdliiuyee-hwfxfz does ALL the effort. Patient does none of the effort to complete the activity. Or, the assistance of 2 or more helpers is required for the patient to complete the activity. If activity was not attempted, code reason: 7-Patient Refused. 9-Not Applicable-not attempted and the patient did not perform the activity before the current illness, exacerbation or injury. 10-Not Attempted due to Environmental Limitations-(lack of equipment, weather restraints, etc.). 88-Not Attempted due to Medical Conditions or Safety Concerns. Lying to Sitting/Side of Bed(Q: 6 Sit to Stand (QC): 6 Weight Bearing Full Weight Bearing Full Weight Bearing Gait Training Does the Patient Walk?: Yes Distance: 125', 150' Walk 10 feet (QC): 6 Walk 50 ft with 2 Turns(QC): 6 Walk 150 ft (QC): 6 Wheelchair Training Does the Pt Use a Wheelchair?: No Exercises NuStep Minutes: 15 NuStep Workload: 4 Treatments Pt amb. in hallway and uses NuStep for 15m at WL 4 then amb. in hallway before returning to room to rest and eat lunch. Pt has all needs met, call light in hand. Assessment Current Status: Good Progress Pt tolerates Rx. well. PT Short Term Goals Short Term Goals Time Frame: Jun 18, 2020 Roll Left & Right: 6 Sit to lyin Lying to sitting on side of be: 6 Sit to stand: 5 Chair/lep-bn-wxhav transfer: 5 Walk 10 feet: 5 Walk 50 feet with two turns: 5 Walk 150 feet: 5 PT Halfway Goals Halfway Goals PT Mining Engineering Technologist Goals Time Frame: Jul 02, 2020 Roll Left & Right (QC): 6 Sit to Lying (QC): 6 Lying-Sitting on Side/Bed(QC): 6 Sit to Stand (QC): 6 Chair/Oan-wt-Aoflj Xfer(QC): 6 Toilet Transfer (QC): 6 Car Transfer (QC): 6 Does the Patient Walk: Yes Walk 10 feet (QC): 6 Walk 50ft with 2 Turns (QC): 6 Walk 150 ft (QC): 6 Walking 10ft on Uneven Surface: 6 1 Step (curb) (QC): 6 4 Steps (QC): 6 12 Steps (QC): 6 Picking up an Object (QC): 6 Wheel 50 feet with 2 turns (QC: 9 Wheel 150 feet: 9 PT Plan Problem List Problem List: Activity Tolerance Treatment/Plan Treatment Plan: Continue Plan of Care Treatment Plan: Education, Functional Activity Azeem, Functional Strength, Group Therapy, Gait, Safety, Therapeutic Exercise, Transfers Treatment Duration: Jul 02, 2020 Frequency: At least 5 of 7 days/Wk (IRF) Estimated Hrs Per Day: 1.5 hours per day Patient and/or Family Agrees t: Yes Time/GCodes Time In: 1145 Time Out: 1215 Total Billed Treatment Time: 30 Total Billed Treatment 1, GT (15m) & EX (15m) JE MINA GREETER Jun 13, 2020 12:35
--- NOTE | 2020-06-13 14:08 | Physical Therapy Daily Note ---
PT Daily Note-Current Subjective Pt in bed upon arrival and agrees to PT. Pain Location: No Pain Reported Mental Status Patient Orientation: Person, Place, Time, Situation Transfers SCALE: Activities may be completed with or without assistive devices. 8-Sgebuinrys-suckxan completes the activity by him/herself with no assistance from a helper. 5-Set-up or Clean-up Assistance-helper sets up or cleans up; patient completes activity. [place] assists only prior to or following the activity. 4-Supervision or Touching Assistance-helper provides verbal cues and/or touching/steadying and/or contact guard assistance as patient completes activity. Assistance may be provided throughout the activity or intermittently. 3-Partial/Moderate Assistance-helper does LESS THAN HALF the effort. [place] lifts, holds or supports trunk or limbs, but provides less than half the effort. 2-Substantial/Maximal Assistance-helper does MORE THAN HALF the effort. [place] lifts or holds trunk or limbs and provides more than half the effort. 3-Gltfzvsaa-dndzfn does ALL the effort. Patient does none of the effort to complete the activity. Or, the assistance of 2 or more helpers is required for the patient to complete the activity. If activity was not attempted, code reason: 7-Patient Refused. 9-Not Applicable-not attempted and the patient did not perform the activity before the current illness, exacerbation or injury. 10-Not Attempted due to Environmental Limitations-(lack of equipment, weather restraints, etc.). 88-Not Attempted due to Medical Conditions or Safety Concerns. Sit to Stand (QC): 6 Weight Bearing Full Weight Bearing Full Weight Bearing Gait Training Does the Patient Walk?: Yes Distance: 600 x4 Walk 10 feet (QC): 6 Walk 50 ft with 2 Turns(QC): 6 Walk 150 ft (QC): 6 Gait Assistive Device: FWW Pt retro gait beginning of tx, pt had slight LOB but self corrected. Pt amb around unit and main floor of hospital. Pt descended/ascended ramp on main floor 175' x2. Pt amb on carpeted floor 50' x3. Pt amb back to elevators and on IRU. Pt attempted retro gait again with no LOB, as well as side to side and in a fig 8 pattern. Wheelchair Training Does the Pt Use a Wheelchair?: No Exercises Standing: Hip Abduction, Hamstring curls, Heel/toe raises, Marching, Retro gait Standing Reps: 15 NuStep Minutes: 15 NuStep Workload: 5 Treatments Pt amb to gym following retro gait. Pt performs NuStep prior to standing exercises at // bars. Pt amb to elevators, performs amb activities on main floor, and returns to IRU. Pt performs gait challenges. Pt performed 360 deg turns. Pt returns to room and left with all needs met, call light in hand. Assessment Current Status: Excellent Progress Pt had one slight LOB episode but was self corrected. Pt requires few rest breaks throughout tx. Pt has overall increased strength, endurance, and balance. PT Short Term Goals Short Term Goals Time Frame: Jun 18, 2020 Roll Left & Right: 6 Sit to lyin Lying to sitting on side of be: 6 Sit to stand: 5 Chair/blw-ba-rngep transfer: 5 Walk 10 feet: 5 Walk 50 feet with two turns: 5 Walk 150 feet: 5 PT Film Waxer Goals Film Waxer Goals PT Film Waxer Goals Time Frame: Jul 02, 2020 Roll Left & Right (QC): 6 Sit to Lying (QC): 6 Lying-Sitting on Side/Bed(QC): 6 Sit to Stand (QC): 6 Chair/Xmb-en-Siazk Xfer(QC): 6 Toilet Transfer (QC): 6 Car Transfer (QC): 6 Does the Patient Walk: Yes Walk 10 feet (QC): 6 Walk 50ft with 2 Turns (QC): 6 Walk 150 ft (QC): 6 Walking 10ft on Uneven Surface: 6 1 Step (curb) (QC): 6 4 Steps (QC): 6 12 Steps (QC): 6 Picking up an Object (QC): 6 Wheel 50 feet with 2 turns (QC: 9 Wheel 150 feet: 9 PT Plan Treatment/Plan Treatment Plan: Continue Plan of Care Treatment Plan: Education, Functional Activity Azeem, Functional Strength, Group Therapy, Gait, Safety, Therapeutic Exercise, Transfers Treatment Duration: Jul 02, 2020 Frequency: At least 5 of 7 days/Wk (IRF) Estimated Hrs Per Day: 1.5 hours per day Patient and/or Family Agrees t: Yes Safety Risks/Education Patient Education: Gait Training, Correct Positioning, Safety Issues Teaching Recipient: Patient Teaching Methods: Demonstration, Discussion Response to Teaching: Verbalize Understanding, Return Demonstration Time/GCodes Time In: 1300 Time Out: 1400 Total Billed Treatment Time: 60 Total Billed Treatment 1, FA x2 (30m), Ex (15m), GT (15m) JEANETTE CANTU OPHTHALMIC ASSISTANT Jun 13, 2020 14:08
[2020-06-13 18:00] VITALS: BP 129/61
--- NOTE | 2020-06-13 19:20 | NUR ---
bedside report received from RADHA CASTILLO, assume care of pt
[2020-06-13 20:14] VITALS: BP 127/64
[2020-06-13] MEDS: FENOFIBRATE 134 MG (LOFIBRA) CAPSULE PO SCH (20:16)
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
[2020-06-13] MEDS ORDERED: HYDR-34 PO (21:32)
[2020-06-13] MEDS ORDERED: METH500T7 PO (21:32)
[2020-06-13] MEDS ORDERED: LORA-405 PO (21:32)
[2020-06-13] MEDS ORDERED: SENN-20 PO (21:32)
[2020-06-13] MEDS ORDERED: FENO134C PO (21:32)
[2020-06-14 05:17] VITALS: BP 126/61
[2020-06-14 05:47] LABS: POTASSIUM 4.6 MMOL/L (3.6-5.0)
[2020-06-14 05:48] LABS: CALCIUM 9.2 MG/DL (8.5-10.1)
[2020-06-14 05:52] LABS: CREATININE SERUM 1.41 MG/DL (0.60-1.30)
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
[2020-06-14] MEDS: PANTOPRAZOLE 40 MG (PROTONIX) TAB PO SCH (06:40)
[2020-06-14] MEDS: metFORMIN 500 MG (GLUCOPHAGE) TAB PO SCH (06:40)
[2020-06-14] MEDS: PIOGLITAZONE 30MG (ACTOS) TAB PO SCH (06:40)
[2020-06-14] MEDS: MULTIVIT W/MINERALS TAB (THERAGRAN M) PO SCH (06:40)
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
[2020-06-14] MEDS: ASPIRIN E.C. 81 MG (ECOTRIN) TAB PO SCH (08:57)
[2020-06-14] MEDS: CALCIUM CARBONATE 500 MG (TUMS) TAB.CHEW PO SCH (08:57)
[2020-06-14] MEDS: inSUlin NPH (NovoLIN N) 1 UNIT/0.01 ML (CHARGE PER UNIT) SQ SCH (08:57)
[2020-06-14] MEDS: inSUlin (REGULAR) HUMAN 1 UNIT/0.01 ML (CHARGE PER UNIT) SC SCH (08:57)
[2020-06-14] MEDS: DOCUSATE SODIUM 100 MG (COLACE) CAP PO SCH (08:57)
[2020-06-14] MEDS: meTOprolol TARTRATE 25 MG (LOPRESSOR) TABLET PO SCH (08:57)
[2020-06-14] MEDS: SENNA W/DOCUSATE (SENOKOT S) TABLET PO SCH (08:57)
[2020-06-14] MEDS: ENOXAPARIN 40 MG/0.4 ML (LOVENOX) SYR SC SCH (08:57)
[2020-06-14] MEDS: CELECOXIB 100 MG (CeleBREX) CAP PO SCH (08:58)
[2020-06-14] MEDS: polyethylene glycoL POWDER 17 GM (MIRALAX) PACK PO SCH (09:18)
--- NOTE | 2020-06-14 09:46 | NUR ---
Initial visit made by STEPHANIE Gil. Happy with treatment and going home today.
[2020-06-14 12:40] VITALS: BP 126/61
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
== END 2020-06-14 12:40 | disposition home or self-care (01) | DRG 560 ==
PROVIDERS: ADMIT Internal Medicine; ATTEND Internal Medicine
DX: S12.690D Other displaced fracture of seventh cervical vertebra, subsequent encounter for fracture with routine healing (principal); Z68.41 Body mass index [BMI] 40.0-44.9, adult; Z47.89 Encounter for other orthopedic aftercare; E87.1 Hypo-osmolality and hyponatremia; S13.4XXD Sprain of ligaments of cervical spine, subsequent encounter; E66.01 Morbid (severe) obesity due to excess calories; I12.9 Hypertensive chronic kidney disease with stage 1 through stage 4 chronic kidney disease, or unspecified chronic kidney disease; E11.22 Type 2 diabetes mellitus with diabetic chronic kidney disease; N18.9 Chronic kidney disease, unspecified; E78.5 Hyperlipidemia, unspecified; D64.9 Anemia, unspecified; Z79.4 Long term (current) use of insulin; V49.9XXD Car occupant (driver) (passenger) injured in unspecified traffic accident, subsequent encounter
CPT/HCPCS: 36415; 80048; 80053; 82962; 85007; 85027